=== PATIENT | female | born 1990 | race Caucasian/White ===

== ENCOUNTER 2016-10-08 19:47 | Emergency (ER) | payer SELFPAY ==
[2016-10-08 20:21] VITALS: TEMP 99.4; O2SAT 97
--- NOTE | 2016-10-08 20:28 | ED.PDOC ---
History of Present Illness - General Chief Complaint: Abdominal Pain Stated Complaint: abdominal pain Time Seen by Provider: 10/08/16 20:14 Information Source: patient, RN notes reviewed, Vital Signs reviewed Exam Limitations: no limitations - History of Present Illness Initial Comments: Patient reports she started with crampy lower abd pain 1 week ago. Thought she was going to start her period. It has not started but she is having some spotting when she wipes after going to the restroom. Pain got worse today and became sharp. She has also had loose stools today but not diarrhea. She has recently been sexually active. No fever or chills. No nausea or vomiting. Bumps while riding in the car made her pain worse. Abdominal Pain Onset Location: RLQ, LLQ, suprapubic Pain Radiation: no radiation Quality: moderate, cramping, sharpness, stabbing, waxing/waning Timing/Duration: 1 week, getting worse Improving Factors: rest Worsening Factors: movement Associated Symptoms: denies symptoms Review of Systems - Review of Systems Constitutional: States: no symptoms reported. Denies: chills, diaphoresis, fever, malaise, weakness Respiratory: States: wheezing, other - Reports her allergies/asthma have been flaring recently. Denies: short of breath Cardiology: States: no symptoms reported Gastrointestinal/Abdominal: States: see HPI, abdominal pain. Denies: constipation, diarrhea, nausea, vomiting Genitourinary: States: discharge. Denies: dysuria, frequency, hematuria, pain Musculoskeletal: States: no symptoms reported Skin: States: no symptoms reported Neurological: States: no symptoms reported Past Medical History (General) - Patient Medical History Hx Asthma: Yes - Vaccination History Hx Influenza Vaccination: No - Social History Hx Alcohol Use: No - Female History Patient is a Female of Child Bearing Age (10 -59 yrs old): Yes Family Medical History - Family History Father Family History: Unknown Physical Exam - Physical Exam General Appearance: Alert, No apparent distress, Well Developed, Well Groomed, Well Hydrated, Well Nourished, Other - in pain Neck: non-tender, full range of motion, supple, normal inspection Respiratory: no respiratory distress, no accessory muscle use, wheezing, expiration Cardiovascular/Chest: regular rate, rhythm, no edema, no gallop, no JVD, no murmur Gastrointestinal/Abdominal: soft, guarding - RLQ, tenderness - RLQ Back Exam: normal inspection, no CVA tenderness Extremity: normal range of motion, non-tender, normal inspection, no pedal edema Neurologic: no motor/sensory deficits, alert, normal mood/affect, oriented x 3 Skin Exam: normal color, warm/dry Lymphatic: no adenopathy Progress - Progress Progress: 10/08/16 20:55 test is negative so will give pain medication and order cat scan. 10/08/16 21:22 Patient has been drug free for 1 year. She is also driving herself and lives alone. Will stop Morphine and give Toradol instead. 10/08/16 21:51 Patient reports pain is improving but worsens as she moves around. 10/08/16 21:55 Discussed results and diagnosis of Colitis with patient. Discussed IV vs PO medications. She would like to go ahead and get the PO medications and go home. - EKG/XRAY/CT CT Ordered: Yes - Thickening of bowel wall suggestive of colitis per Radiologist. Departure - Departure Clinical Impression: Acute colitis Time of Disposition: 22:07 Disposition: Discharge to Home or Self Care Condition: Good Departure Forms: ED Discharge - Pt. Copy, Patient Portal Self Enrollment Instructions: DI for Abdominal Pain-Adult, DI for Colitis Diet: full liquid diet Prescriptions: Ciprofloxacin [Cipro] 500 mg PO BID #14 tab metroNIDAZOLE [Flagyl] 500 mg PO BID #14 tab Ondansetron [Zofran Odt] 4 mg PO BID PRN #15 tab PRN Reason: Nausea/Vomiting Home Medications: Ambulatory Orders Albuterol Inhaler [Ventolin Hfa Inhaler] 1 puff INH PRN 10/08/16 Ciprofloxacin [Cipro] 500 mg PO BID #14 tab 10/08/16 Ondansetron [Zofran Odt] 4 mg PO BID PRN #15 tab 10/08/16 metroNIDAZOLE [Flagyl] 500 mg PO BID #14 tab 10/08/16 Additional Instructions: Follow up with your physician in 2 days, sooner if symptoms worsen.
[2016-10-08] MEDS ORDERED: ONDANSETRON INJ 4 MG/2 ML VIAL IV ONE (20:54)
[2016-10-08] MEDS ORDERED: MORPHINE SULFATE INJ 10 MG/ML VIAL IV ONE (20:54)
[2016-10-08] MEDS ORDERED: KETOROLAC TROMETHAMINE INJ 30 MG/ML VIAL IV ONE (21:21)
--- NOTE | 2016-10-08 21:45 | CT ---
EXAM DESCRIPTION: CT ABDOMEN PELVIS WITH IV CONTRAST CLINICAL HISTORY: 26 y/o FRLQ abd pain COMPARISON: None. TECHNIQUE: Contiguous axial images were obtained through the abdomen and pelvis following IV contrast. Reformatted images obtained. FINDINGS: The lung bases are clear. 1 cm low-density lesion in the upper medial liver which is not characterized. Mild fatty replacement in the liver. The liver is slightly enlarged measuring approximately 18.5 cm in length. The spleen, pancreas and adrenal glands appear unremarkable. 1 cm low-density lesion in the right kidney consistent with a cyst. No hydronephrosis. The gallbladder is contracted. The abdominal aorta appears unremarkable. No bowel obstruction. There appears to be wall thickening in the ascending colon and transverse colon concerning for changes from infectious or inflammatory colitis. The appendix appears unremarkable. No free pelvic fluid. IMPRESSION: There appears to be wall thickening in the ascending colon and transverse colon concerning for changes from infectious or inflammatory colitis. The appendix appears unremarkable. Electronically signed by: Eddy Adams MD 10/08/2016 21:42
[2016-10-08] MEDS ORDERED: CIPROFLOXACIN 500 MG TAB PO ONE (21:57)
[2016-10-08] MEDS ORDERED: ONDANSETRON 4 MG TAB PO ONE (21:57)
[2016-10-08] MEDS ORDERED: metroNIDAZOLE 500 MG TAB PO ONE (21:57)
[2016-10-08 22:24] VITALS: BP 137/87
== END 2016-10-08 22:24 | disposition home or self-care (01) ==
LOC: ER 19:47
DX: K52.9 Noninfective gastroenteritis and colitis, unspecified (principal)
CPT/HCPCS: 74177; 80053; 81001; 81025; 85025; J1885; J2405

== ENCOUNTER 2017-01-12 15:28 | Emergency (ER) | payer SELFPAY ==
[2017-01-12 16:01] VITALS: BP 131/90; TEMP 96.8; O2SAT 97
[2017-01-12] MEDS ORDERED: predniSONE 20 MG TAB PO ONE (16:05)
[2017-01-12] MEDS ORDERED: MONTELUKAST SODIUM 10 MG TAB PO ONE (16:05)
--- NOTE | 2017-01-12 16:08 | ED.PDOC ---
History of Present Illness - General Chief Complaint: ENT Problem Stated Complaint: sinus congestion, sore throat Time Seen by Provider: 01/12/17 16:05 Source: patient Exam Limitations: no limitations - History of Present Illness Initial Comments: The patient is a 26-year-old female presenting to the emergency room secondary to symptoms of nasal congestion primarily and a mild sore throat. It started when she came back into town 2 days ago. She does take Zyrtec some eye regularly. She does have a history of asthma. She also does have a mild cough. On examination her nares are all he with copious clear rhinorrhea. Tympanic membranes are both clear but there is obvious pressure behind them. Pulmonary exam she does have diffuse wheezes and decreased air movement bilaterally. She also has some mild scattered rhonchi. She denies fevers. She denies chest pain. She does have a history of asthma and has been taking her albuterol with some relief. She is not . Timing/Duration: unsure Severity: moderate Improving Factors: nothing Worsening Factors: nothing Associated Symptoms: cough, malaise Allergies/Adverse Reactions: Allergies NO KNOWN ALLERGY Allergy (Verified 10/08/16 20:21) Home Medications: Ambulatory Orders Montelukast Sodium [Singulair] 10 mg PO DAILY #30 tab 01/12/17 predniSONE [Prednisone] 20 mg PO DAILY #3 tab 01/12/17 Review of Systems - Review of Systems Constitutional: States: malaise EENTM: States: nose congestion, throat pain Respiratory: States: cough, short of breath, wheezing - mild Cardiology: States: no symptoms reported Gastrointestinal/Abdominal: States: no symptoms reported Genitourinary: States: no symptoms reported Musculoskeletal: States: no symptoms reported Skin: States: no symptoms reported Neurological: States: no symptoms reported Endocrine: States: no symptoms reported All other Systems: No Change from Baseline Past Medical History (General) - Patient Medical History Hx Asthma: Yes Hx Congestive Heart Failure: No Hx Hypertension: Yes Hx Diabetes: No - Vaccination History Hx Influenza Vaccination: No - Social History Hx Tobacco Use: Yes Hx Alcohol Use: No - Female History Patient is a Female of Child Bearing Age (10 -59 yrs old): Yes - periods are irregular Family Medical History - Family History Father Family History: Unknown Physical Exam - Physical Exam General Appearance: Alert, Comfortable, No apparent distress Eye Exam: bilateral normal Ears, Nose, Throat: hearing grossly normal, nasal congestion, pharyngeal erythema - minimal, other - see history of present illness Neck: non-tender, full range of motion, supple Respiratory: chest non-tender, no respiratory distress, no accessory muscle use , other - No respiratory distress She has scattered wheezes and rhonchi. Cardiovascular/Chest: normal peripheral pulses, regular rate, rhythm, no edema Peripheral Pulses: radial,right: 2+, radial,left: 2+ Gastrointestinal/Abdominal: non tender, soft Rectal Exam: deferred Back Exam: normal inspection, no CVA tenderness, no vertebral tenderness Extremity: normal range of motion, non-tender, normal inspection, no pedal edema , normal capillary refill Neurologic: alert, normal mood/affect, oriented x 3 Skin Exam: normal color Comments: Vital Signs - 24 hr 01/12/17 15:56 Temperature 96.8 F L Pulse Rate [ 51 L Left Brachial] Respiratory 20 Rate Blood Pressure 131/90 [Left Arm] O2 Sat by Pulse 97 Oximetry Progress - Progress Progress: 01/12/17 16:08 the patient is a 26-year-old female with what appears to be primarily allergic rhinitis and an asthma exacerbation. the patient is also going to be placed on Singulair daily for the next month. 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 She needs to continue her Zyrtec 10 mg twice daily. She needs to continue her albuterol treatments. ER warnings are given for any acute worsening. She needs to follow-up with her primary care doctor for continuation of care of her asthma. She'll be written for 3 days oral prednisone as well. Departure - Departure Clinical Impression: Asthma exacerbation Allergic rhinitis Qualifiers: Allergic rhinitis type: unspecified Qualified Code(s): J30.9 - Allergic rhinitis, unspecified Disposition: Discharge to Home or Self Care Condition: Fair Departure Forms: ED Discharge - Pt. Copy, Patient Portal Self Enrollment Instructions: DI for Asthma -- Adult, Allergies (Alternative Therapy) Diet: regular diet Activity: increase activity as tolerated Prescriptions: Montelukast Sodium [Singulair] 10 mg PO DAILY #30 tab predniSONE [Prednisone] 20 mg PO DAILY #3 tab Home Medications: Ambulatory Orders Montelukast Sodium [Singulair] 10 mg PO DAILY #30 tab 01/12/17 predniSONE [Prednisone] 20 mg PO DAILY #3 tab 01/12/17 Additional Instructions: the patient is a 26-year-old female with what appears to be primarily allergic rhinitis and an asthma exacerbation. the patient is also going to be placed on Singulair daily for the next month. 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 She needs to continue her Zyrtec 10 mg twice daily. She needs to continue her albuterol treatments. ER warnings are given for any acute worsening. She needs to follow-up with her primary care doctor for continuation of care of her asthma. She'll be written for 3 days oral prednisone as well.
== END 2017-01-12 16:41 | disposition home or self-care (01) ==
LOC: ER 15:28
DX: J30.9 Allergic rhinitis, unspecified (principal); I10 Essential (primary) hypertension; J45.909 Unspecified asthma, uncomplicated; Z79.899 Other long term (current) drug therapy

== ENCOUNTER 2018-04-17 18:53 | Emergency (ER) | payer SELFPAY ==
[2018-04-17] MEDS ORDERED: CLINDAMYCIN HCL CAP (ER DISP) 150 MG CAP PO ONE (19:16)
[2018-04-17] MEDS ORDERED: KETOROLAC TROMETHAMINE INJ 60 MG/2 ML VIAL IM ONE (19:16)
[2018-04-17] MEDS ORDERED: DEXAMETHASONE INJ 10 MG/ML VIAL IM ONE (19:17)
[2018-04-17] MEDS ORDERED: HYDROcodone 7.5MG/APAP 325MG 1 EA TAB PO ONE (19:24)
--- NOTE | 2018-04-17 19:27 | ED.PDOC ---
History of Present Illness - General Time Seen by Provider: 04/17/18 19:16 Source: patient Exam Limitations: no limitations Additional Information: 27 YEAR OLD COMPLAINTS OF PAIN IN THE RIGHT LOWER TEETH ONSET 1 WEEK TRIED OTC MEDS NOT EFFECTIVE NOW HAS SWELLING ON THE RIGHT JAW NOT ABLE TO EAT BECAUSE OF PAIN FOOD TEMP INCREASE THE PAIN - History of Present Illness Timing/Duration: 1 week Severity: moderate Improving Factors: nothing Worsening Factors: cold therapy, eating Associated Symptoms: denies symptoms Allergies/Adverse Reactions: Allergies NO KNOWN ALLERGY Allergy (Verified 10/08/16 20:21) Home Medications: Ambulatory Orders Montelukast [Singulair] 10 mg PO DAILY #30 tab 01/12/17 predniSONE [Prednisone] 20 mg PO DAILY #3 tab 01/12/17 Acetamin W/Cod #3 Tab [Tylenol w/CODEINE #3] 1 ea PO Q6HR PRN #40 tab 04/17/18 Clindamycin HCl [Cleocin] 300 mg PO Q6H #40 cap 04/17/18 Review of Systems - Review of Systems Constitutional: States: no symptoms reported EENTM: States: no symptoms reported Respiratory: States: no symptoms reported Cardiology: States: no symptoms reported Gastrointestinal/Abdominal: States: no symptoms reported Genitourinary: States: no symptoms reported Musculoskeletal: States: no symptoms reported Skin: States: no symptoms reported Neurological: States: no symptoms reported Endocrine: States: no symptoms reported Hematologic/Lymphatic: States: no symptoms reported Past Medical History (General) - Patient Medical History Hx Asthma: Yes Hx Congestive Heart Failure: No Hx Hypertension: Yes Hx Diabetes: No - Vaccination History Hx Influenza Vaccination: No - Social History Hx Tobacco Use: Yes Hx Alcohol Use: No Family Medical History - Family History Father Family History: Unknown Physical Exam - Physical Exam General Appearance: Alert, Comfortable Eye Exam: bilateral normal Ears, Nose, Throat: hearing grossly normal, normal ENT inspection, normal pharynx, other - SHE HAS CAVITY IN THE RIGHT LOWER PRE MOLAR AND TENDERNESS ON THE ADJACENT GUM MARGIN NO LYMPHADENOPATHY Neck: non-tender, full range of motion, supple Respiratory: chest non-tender, lungs clear, normal breath sounds, no respiratory distress, no accessory muscle use Cardiovascular/Chest: normal peripheral pulses, regular rate, rhythm, no edema, no gallop, no JVD, no murmur Gastrointestinal/Abdominal: normal bowel sounds, non tender, soft, no organomegaly, no pulsatile mass Back Exam: normal inspection, no CVA tenderness, no vertebral tenderness Neurologic: seater grinder II-XII nml as tested, no motor/sensory deficits, alert, normal mood/affect, oriented x 3 Skin Exam: normal color Lymphatic: no adenopathy Departure - Departure Clinical Impression: Dental infection Time of Disposition: 19:29 Disposition: Discharge to Home or Self Care Condition: Good Diet: resume usual diet Prescriptions: Acetamin W/Cod #3 Tab [Tylenol w/CODEINE #3] 1 ea PO Q6HR PRN #40 tab PRN Reason: Mild To Moderate Pain Clindamycin HCl [Cleocin] 300 mg PO Q6H #40 cap Home Medications: Ambulatory Orders Montelukast [Singulair] 10 mg PO DAILY #30 tab 01/12/17 predniSONE [Prednisone] 20 mg PO DAILY #3 tab 01/12/17 Acetamin W/Cod #3 Tab [Tylenol w/CODEINE #3] 1 ea PO Q6HR PRN #40 tab 04/17/18 Clindamycin HCl [Cleocin] 300 mg PO Q6H #40 cap 04/17/18
[2018-04-17 20:12] VITALS: BP 147/106; TEMP 98.6; O2SAT 98
== END 2018-04-17 19:50 | disposition home or self-care (01) ==
LOC: ER 18:53
DX: K04.7 Periapical abscess without sinus (principal); J45.909 Unspecified asthma, uncomplicated; I10 Essential (primary) hypertension; Z87.891 Personal history of nicotine dependence
CPT/HCPCS: J1100; J1885

== ENCOUNTER 2019-01-26 13:52 | Emergency (ER) | payer SELFPAY ==
[2019-01-26] MEDS ORDERED: IPRATROPIUM/ALBUTEROL 3 ML VIAL NEB ONE (14:16)
[2019-01-26] MEDS ORDERED: DEXAMETHASONE INJ 4 MG/ML VIAL IM ONE (14:16)
[2019-01-26] MEDS ORDERED: KETOROLAC TROMETHAMINE INJ 60 MG/2 ML VIAL IM ONE (14:16)
--- NOTE | 2019-01-26 14:18 | ED.PDOC ---
History of Present Illness - General Chief Complaint: Headache Stated Complaint: Pt states she has had a headache for a week Time Seen by Provider: 01/26/19 13:53 Source: patient Exam Limitations: no limitations - History of Present Illness Initial Comments: patient comes in today for 1 week history of severe left-sided headache. Patient states the headache is constant and feels like it sinus related. She has had some purulent postnasal drip and nasal drainage. She's had no fever or chills. She denies any vision change or altered LOC. She states she's been trying neti pot and [id number] sinus medication without improvement. She even tried some ? antibiotics that she had from before but they also seen have not seemed to help. She has had a headache like this about a year ago and she received an anti-inflammatory shot that made it go away and never came back. She has no history of migraines and does have a history of asthma. She is a smoker and a recovering alcoholic Timing/Duration: 1 week Quality: severe Head Injury Location: frontal Recent Head Trauma: no recent headache/trauma, other - similar headache 1 year ago, see HPI Improving Factors: nothing Worsening Factors: movement Associated Symptoms: facial pain, nasal drainage Allergies/Adverse Reactions: Allergies NO KNOWN ALLERGY Allergy (Verified 10/08/16 20:21) Home Medications: Ambulatory Orders Montelukast [Singulair] 10 mg PO DAILY #30 tab 01/12/17 predniSONE [Prednisone] 20 mg PO DAILY #3 tab 01/12/17 Acetamin W/Cod #3 Tab [Tylenol w/CODEINE #3] 1 ea PO Q6HR PRN #40 tab 04/17/18 Clindamycin HCl [Cleocin] 300 mg PO Q6H #40 cap 04/17/18 Amoxicillin 875 mg PO BID #20 tab 01/26/19 Review of Systems - Review of Systems Constitutional: States: no symptoms reported. Denies: chills, fever EENTM: States: ear pain, nose congestion Respiratory: States: wheezing. Denies: cough, short of breath Cardiology: States: no symptoms reported. Denies: chest pain, palpitations Gastrointestinal/Abdominal: States: no symptoms reported. Denies: abdominal pain, diarrhea, nausea, vomiting Genitourinary: States: no symptoms reported Musculoskeletal: States: no symptoms reported Past Medical History (General) - Patient Medical History Hx Asthma: Yes Hx Congestive Heart Failure: No Hx Hypertension: Yes Hx Diabetes: No - Vaccination History Hx Influenza Vaccination: No - Social History Hx Tobacco Use: Yes Hx Alcohol Use: No - Female History Patient : No Family Medical History - Family History Father Family History: Unknown Physical Exam - Physical Exam General Appearance: Alert, No apparent distress Eyes, Ears, Nose, Throat Exam: PERRL/EOMI, TMs normal, pharynx normal - post nasal drip and sinus pressure/pain L maxillary sinus, no tenderness to mastoid Neck: non-tender, full range of motion, supple Cardiovascular/Chest: normal peripheral pulses, regular rate, rhythm, no murmur Respiratory: wheezing - in all lung agosto Gastrointestinal/Abdominal: normal bowel sounds, non tender, soft Progress - Progress Progress: patient feels much better and headache is now resolved. Patient states she has no vision pain and the pressure is gone. Discussing with the patient her blood pressure she states that her blood pressure does have a tendency to be high when she gains weight and she did have preeclampsia with her delivery of her 4-year-old. She is not currently on any blood pressure medication and that she has not established care with a physician she moved to [facility]. We have given her a dose here of blood pressure medication for today. She is to follow-up with the next 1-2 days in the clinic to recheck and decide if further treatment is necessary. Her blood pressure has improved with pain control. Patient has not been sexually active in a year and states cannot be 01/26/19 15:11 Departure - Departure Clinical Impression: Sinus headache, Elevated blood pressure reading Disposition: Discharge to Home or Self Care Condition: Good Departure Forms: ED Discharge - Pt. Copy, Patient Portal Self Enrollment Instructions: DI for Headache Referrals: Shelby Schwartz NP [Primary Care Provider] - 1-2 Weeks Home Medications: Ambulatory Orders Montelukast [Singulair] 10 mg PO DAILY #30 tab 01/12/17 predniSONE [Prednisone] 20 mg PO DAILY #3 tab 01/12/17 Acetamin W/Cod #3 Tab [Tylenol w/CODEINE #3] 1 ea PO Q6HR PRN #40 tab 04/17/18 Clindamycin HCl [Cleocin] 300 mg PO Q6H #40 cap 04/17/18 Amoxicillin 875 mg PO BID #20 tab 01/26/19 Additional Instructions: follow up in 1-2 days in clinic to recheck blood pressure. Return to ER for severe headache, vision change, or chest pain.
[2019-01-26] MEDS ORDERED: CHLORTHALIDONE 25 MG TAB PO SCH (15:30)
[2019-01-26 15:46] VITALS: O2SAT 95
[2019-01-26 15:48] VITALS: BP 121/84; TEMP 97.1
== END 2019-01-26 15:47 | disposition home or self-care (01) ==
LOC: ER 13:52
DX: R51 Headache (principal); I10 Essential (primary) hypertension; J45.909 Unspecified asthma, uncomplicated; F17.200 Nicotine dependence, unspecified, uncomplicated
CPT/HCPCS: 94640; J1100; J1885; J7620